=== PATIENT | male | born 1945 | race Caucasian/White ===

== ENCOUNTER 2022-08-16 13:02 | Emergency (ER) | payer MEDICARE, SELFPAY ==
[2022-08-16 14:16] VITALS: BP 106/62; PULSE 97; RESP 20; TEMP 36.5; O2SAT 99
--- NOTE | 2022-08-16 16:02 | ED.MALEGU ---
HPI - Male Genitourinary General Chief complaint: Urogenital-Male Stated complaint: Urinary Problem Time Seen by Provider: 08/16/22 15:55 Source: patient, family, RN notes reviewed and old records reviewed Mode of arrival: wheelchair Limitations: no limitations History of Present Illness HPI Narrative: 77-year-old male accompanied by [facility] to [facility] with complaint urinary burning, fever and chills since last night, increased darkness of urine with frequency and urgency and some incontinency. states they called For primary care and were told to come to urgent care to have urine done, we did not think we would have to wait for so long. Patient has history of past urinary infections.Patient is very unsteady on his feet and states he needs to have hip replacement done, nurses had to assist him to use restroom. MD Complaint: dysuria Onset (ago): day(s) (day 2 of symptoms) Associated symptoms: Reports incontinence Related Data Home Medications Medication Instructions Recorded Confirmed amlodipine 2.5 mg tablet 5 mg PO DAILY 08/16/22 08/16/22 aspirin 81 mg capsule 81 mg PO DAILY 08/16/22 08/16/22 atorvastatin 40 mg tablet 40 mg PO DAILY 08/16/22 08/16/22 cholecalciferol (vitamin D3) 10 10 mcg PO DAILY 08/16/22 08/16/22 mcg (400 unit) chewable tablet (Kids Vitamin D3) esomeprazole magnesium 20 mg 20 mg PO DAILY 08/16/22 08/16/22 capsule,delayed release (Nexium) labetalol 300 mg tablet 300 mg PO BID 08/16/22 08/16/22 olmesartan 40 mg tablet 40 mg PO DAILY 08/16/22 08/16/22 pediatric [id number] 1 tablet PO DAILY 08/16/22 08/16/22 wheat dextrin 3 gram/3.5 gram oral 1 packet PO DAILY 08/16/22 08/16/22 powder (Best Fiber) Allergies Allergy/AdvReac Type Severity Reaction Status Date / Time lisinopril AdvReac Cough Verified 08/16/22 14:38 Review of Systems Review of Systems: CONSTITUTIONAL: Reports fever, chills, or sweats. CARDIOVASCULAR: Denies chest pain, palpitations, or edema. RESPIRATORY: Denies cough or dyspnea. GASTROINTESTINAL: Denies abdominal pain, nausea, vomiting, or diarrhea. GENITOURINARY: Reports dysuria, frequency, urgency, incontinency. Denies flank pain or hematuria. SKIN: Denies rash or itching. MUSCULOSKELETAL: Denies back pain or myalgia. Denies CVA tenderness NEUROLOGIC: Denies headache All systems reviewed & are unremarkable except as noted in HPI and below PMFSH Past Medical History Medical History (Updated 08/23/22 @ 08:12 by Rosa Langford NP) Anxiety and depression Arthritis right hip Enlarged prostate Hypertension Prostate CA UTI (urinary tract infection) Social History Social History (Updated 08/23/22 @ 08:16 by Rosa Langford NP) Smoking status: Never smoker Alcohol intake: unknown Substance use type: does not use Living arrangements: with family Occupation/Education: retired Gender identity (if verbalized by the patient): Male Comments At time of signature, agree with nursing past medical, surgical, social and family history. There is no relevant family history pertinent to the presenting complaint Exam Narrative: GENERAL:Chronic ill-appearing, well-nourished, and in no acute distress. HEAD: Normocephalic, atraumatic. NECK: Supple. no lymphadenopathy CHEST: Clear to auscultation. No respiratory distress.SAO2 99% on room air HEART: Regular rate and rhythm. No murmur heard. Normal peripheral pulses. ABDOMEN: Soft, nontender, nondistended, normal active bowel sounds. No CVA tenderness EXTREMITIES: Normal range of motion. No edema.Reported difficulty with ambulation related to right hip SKIN: Warm, dry, no rash. NEURO: No focal deficits. Alert and oriented x3. Course Course Emergency Course: Patient is aware of diagnosis, understands and agrees to treatment plan.? Anticipatory guidance given.? Patient agrees to follow-up as directed and is aware of reasons to seek care at the emergency department. Portions of this justin
== END 2022-08-16 16:10 | disposition home or self-care (01) ==
PROVIDERS: Emergency Provider Registered Nurse; PCP Internal Medicine
DX: N39.0 Urinary tract infection, site not specified (principal); M16.11 Unilateral primary osteoarthritis, right hip; N40.0 Benign prostatic hyperplasia without lower urinary tract symptoms; I10 Essential (primary) hypertension; Z85.46 Personal history of malignant neoplasm of prostate; Z79.82 Long term (current) use of aspirin
CPT/HCPCS: 81003; 87077; 87086; 87186; 99213; G0463

== ENCOUNTER 2024-12-29 11:40 | Outpatient (CLI) | payer MEDICARE, SELFPAY ==
--- NOTE | ~2024-12-29 | PE_ITS ---
EXAMINATION: PET skull to mid thigh DATE: 12/29/2024 13:45 INDICATION: Abnormal findings on diagnostic images. TECHNIQUE: Blood glucose level was 99 mg/dL. 10.949 mCi of 18-fluorodeoxyglucose (18-FDG) was adminis tered i.v. Low dose computed tomography (CT) images were acquired from the base of the brain to the p roximal thighs for attenuation correction and anatomic localization. Automated exposure control was e mployed. Dose-length product (DLP) was 1174 mGy-cm. Positron emission tomography (PET) images were ac quired in the same distribution. COMPARISON: None FINDINGS: Head/neck: There are no pathologically enlarged lymph nodes. Chest: There is a pneumatocele in right upper lobe. There is mild atelectasis bilaterally. There are small pleural effusions. The heart size is normal. There are coronary artery calcifications. There is a small pericardial effusion. There is a moderate-sized sliding hiatal hernia. There is bilateral gy necomastia. There is a healing fracture of left first rib with callus formation. There is a healing f racture of the sternum with callus formation. Abdomen/pelvis/proximal thighs: The liver and spleen are normal. The gallbladder is normal in size. T he pancreas and adrenal glands are normal. There are cysts in right kidney measuring up to 3.7 cm. Th ere are 2 stones in right kidney measuring up to 6 mm. There is an 11 mm cyst in left kidney. There i s a 4.0 cm mass of left kidney lower pole with maximum SUV of 3.5. There is an 8 mm cyst in left kidn ey. There is a 9 mm stone in left kidney. The prostate is severely enlarged. There is diverticulosis of the colon without evidence of diverticulitis. There are no dilated loops of bowel. The appendix is normal. There are no pathologically enlarged lymph nodes. There is no free intraperitoneal fluid. 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 IMPRESSION: 1. 4.0 cm left kidney mass with increased activity suspicious for renal cell carcinoma. Abdomen CT or MRI without and with contrast is recommended. 2. Small pleural effusions. Reviewed, dictated and finalized at location B. IMPRESSION: 1. 4.0 cm left kidney mass with increased activity suspicious for renal cell ca rcinoma. Abdomen CT or MRI without and with contrast is recommended. 2. Small pleural effusions.
[2024-12-29 12:20] LABS: Glucose Point of Care 99 mg/dl (65-105)
--- OUTSIDE RECORDS SUMMARY | 2024-12-29 13:34 | XMS_ITS | Encounter Summary ---
Author Organization [facility] Address [address] [place] [address] Care Team Providers Care Blanking Press Operator Name Role Phone Adithya Otero MD Primary Care Provider [phone] Encounter Details Date Type Department Care Team (Late st Contact Info) Description 09/04/[address] 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 HISTORY: HISTORY: 272.4-HYPERLIPIDEMIA The patient is tolerating the medications. 401.9-HYPERTENSION, UNSPECIFIED The patient denies chest pain, shortness of breath, dyspnea on exertion, pedal edema, or headache. 472.0-RHINITIS, CHRONIC on med, stable 600.00-BPH W/O OBSTRUCTION stable ROS: ENDOCRINE: No heat or cold intolerance, no excessive thirst. CARDIAC: No chest pain, palpitations, orthopnea, dyspnea on exertion, or paroxysmal nocturnal dyspnea. RESPIRATORY: No dyspnea, cough, hemoptysis or wheezing. : No dysuria or hematuria. GI: No abdominal pain, nausea, vomiting, diarrhea, constipation, melena, or hematochezia. PAST MEDICAL HISTORY: reviewed SOCIAL HISTORY: TOBACCO USE: Has no significant smoking history. ALCOHOL: Does not give any significant history of alcohol usage. EXERCISES: The patient exercises. PHYSICAL EXAMINATION: CONSTITUTIONAL: GENERAL APPEARANCE: Healthy appearing patient in no distress. EARS, NOSE, MOUTH AND THROAT: EARS: EFFUSION PRESENT BILATERALLY, TYMPANIC MEMBRANES INFLAMED BILATERALLY. ORAL: Inspection of gums, lips, palate, and teeth normal. No scars, lesions, or masses. Oral mucosaunremarkable with non-inflamed posterior pharynx. NECK/THYROID: Trachea midline. No thyroid enlargement, tenderness, or mass. No supraclavicular or cervical adenopathy. RESPIRATORY: Clear to auscultation and percussion. Normal respiratory effort. CARDIOVASCULAR: CARDIAC: Regular rhythm. No murmurs, rubs, or gallops. ARTERIAL: Aortic pulses of normal amplitude with no bruits. EDEMA/VARICOSITIES OF EXTREMITIES: No edema or varicosities. GASTROINTESTINAL: ABDOMEN: Soft, non-tender, without masses. Bowel sounds active. LIVER/SPLEEN/KIDNEY: No hepatosplenomegaly, tenderness or nodularity. Kidneys not palpable. 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 600.00-BPH W/O OBSTRUCTION check psa, exam at fu 780.57-SLEEP APNEA discussed, cont machine RETURN VISIT : Patient instructed to return in 3 months. Electronically Signed by: Adithya Otero MD on Monday, September 04, 2006 Addendum - 09/04/2006 01:12 pm left knee pain old war injuries, djd in past, check uric acid Electronically Signed by: Adithya Otero MD on Monday, September 04, 2006 documented in this encounter Plan of Treatment Upcoming Encounters Date Type Department Care Team (Late st Contact Info) Description 02/09/2025 1:40 PM CDT Office Visit [facility] Primary Care [facility] [address] [place] [address] [address] [place] [address] Adithya Otero MD [address] [facility] [address] [place] [address] documented as of this encounter Visit Diagnoses Not on filedocumented in this encounter Care Teams Blanking Press Operator Relationship Specialty Start Date End Date Adithya Otero MD PCP - General 04/28/08 documented as of this encounter
--- OUTSIDE RECORDS SUMMARY | 2024-12-29 13:34 | XMS_ITS | Encounter Summary ---
Author Organization [facility] Address 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 Gender Identity Not on file Sexual Orientation Not on file documented as of this encounter Last Filed Vital Signs Vital Sign Reading Time Taken Comments Blood Pressure 126/84 12/11/2006 1:00 PM MALARIOLOGIST Pulse - - Temperature - - Respiratory Rate - - Oxygen Saturation - - Inhaled Oxygen Concentration - - Weight 104.3 kg (230 lb) 12/11/2006 1:00 PM MALARIOLOGIST Height - - Body Mass Index 30.76 11/10/2003 1:00 PM MALARIOLOGIST documented in this encounter Plan of Treatment Upcoming Encounters Date Type Department Care Team (Late st Contact Info) Description 02/09/2025 1:40 PM CDT Office Visit [facility] Primary Care [address] [place] [address] Adithya Otero MD [address] [place] [phone] documented as of this encounter Visit Diagnoses Not on filedocumented in this encounter Care Teams Animal Therapist Relationship Specialty Start Date End Date Adithya Otero MD PCP - General 04/28/08 documented as of this encounter
--- OUTSIDE RECORDS SUMMARY | 2024-12-29 13:34 | XMS_ITS | Referral Summary ---
Author Organization [facility] Address [address] [place] [address] Care Team Providers Care Apparatus Operator Name Role Phone Adithya Otero MD Primary Care Provider + Adithya Otero MD Unavailable [phone] Andlydia Bronson MD, Marquise Black Unavailable Encounters Date Type Department Care Team Description 12/20/2024 Community Orders [facility] EpicCare Link Belén Avila MD 11/26/2024 11:34 AM PIPE LAYER - 11/26/2024 11:59 PM PIPE LAYER Hospital Encounter [facility] - Imaging [address] [place] [address] Prostate cancer (HCC) Discharge Disposition: Discharge to home or self care from Last 3 Months Allergies Active Allergy Reactions Criticality Noted Date Comments [place] Anaphylaxis High 12/08/2019 Lisinopril Anaphylaxis High Medications atorvastatin (LIPITOR) 40 mg tabletIndicatio ns:hyperlipidem ia Take 40 mg by mouth nightly Active amLODIPine (NORVASC) 2.5 mg tabletIndicatio ns:hypertension Take 5 mg by mouth every morning 7 Active labetalol (NORMODYNE,NAVARRO DATE) 300 mg tabletIndicatio ns:hypertension Take 300 mg by mouth 2 (two) times a day Active esomeprazole (NexIUM) 40 mg capsuleIndicati ons:Gerd Take 20 mg by mouth daily with lunch 4 Active aspirin 81 mg tabletIndicatio ns:prevention of thrombosis Take 81 mg by mouth every other day Active olmesartan (BENICAR) 40 mg tabletIndicatio ns:hypertension Take 40 mg by mouth nightly 9 Active EPINEPHrine 0.3 mg/0.3 mL auto-injection syringe Inject 0.3 mg into the muscle as instructed daily as needed for anaphylaxis 9 Active acetaminophen (TYLENOL) 500 mg tablet Take 1,000 mg by mouth every 6 (six) hours as needed for pain Active Active Problems Problem Noted Date Diagnosed Date History of colon polyps 04/30/2021 Overview (04/30/2021): Added automatically from request for surgery [id number] Screen for colon cancer 04/30/2021 Overview (04/30/2021): Added automatically from request for surgery [id number] Neurosensory deafness, 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 05/04/2017 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 05/04/2017 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 05/04/2017 History of squamous cell carcinoma of skin 08/07 Malignant neoplasm of prostate 07/11/2015 Hypertrophic scar 04/03/2015 Squamous cell carcinoma of skin of face 11/22/19 15 Social History Tobacco Use Types Packs/Day Years Used Date Smoking Tobacco: Never Smokeless Tobacco: Never Alcohol Use Standard Drinks/Week Comments Not Currently 0 (1 standard drink = 0.6 oz pur e alcohol) Sex and Gender Information Value Date Recorded Sex Assigned at Not on file Legal Sex Male 1:07 AM PIPE LAYER Gender Identity Not on file Sexual Orientation Not on file Last Filed Vital Signs Vital Sign Reading Time Taken Comments Blood Pressure 127/80 09/26/2021 8:52 AM PIPE LAYER Pulse 87 09/26/2021 8:52 AM PIPE LAYER Temperature 36.7 C (98 F) 06/11/2021 12:13 PM CDT Respiratory Rate 20 06/11/2021 12:13 PM CDT Oxygen Saturation 98% 06/11/2021 12:13 PM CDT Inhaled Oxygen Concentration - - Weight 99.8 kg (220 lb) 09/26/2021 8:52 AM PIPE LAYER Height 182.9 cm (6') 09/26/2021 8:52 AM PIPE LAYER Body Mass Index 29.84 09/26/2021 8:52 AM PIPE LAYER Plan of Treatment Not on file Procedures Procedure Name Priority Date/Time Associated Diagnosis Comments MRI PELVIS PROSTATE W WO CONTRAST Schedule Routine, Read Routine (OP Routine) 11/26/2024 1:41 PM PIPE LAYER Prostate cancer (HCC) COLONOSCOPY 06/11/2021 9:48 AM CDT from Last 3 Months or Most Recently Relevant to Health Maintenance Results * MRI PELVIS PROSTATE W WO CONTRAST (11/26/2024 1:41 PM PIPE LAYER) Anatomical Region Laterality Modality Body N/A Magnetic Resonan ce 11/28/2024 11:1 9 AM PIPE LAYER Impressions 11/28/2024 11:21 AM PIPE LAYER Benign prostatic hypertrophy. No evidence of PI RADS 3 or greater lesions. Dictated by: Sondra Kaur M.D. The radiology attending physician has personally reviewed this study, and had reviewed and/or edited this written report and agrees with it. Electronically signed by: Miriam Littlejohn M.D. Narrative 11/28/2024 11:21 AM PIPE LAYER EXAMINATION: MAGNETIC RESONANCE IMAGING OF THE PELVIS WITHOUT AND WITH CONTRAST HISTORY: History of Patricia grade 3+3 = 6 adenocarcinoma of the prostate initially diagnosed on biopsy from 10/26/2014 in the right lateral apex. Patient is currently on active surveillance with most recent PSA of 4.33 on 12/17/2022. Most recent biopsy from 03/26/2020 with benign pathology. TECHNIQUE: MR imaging of the prostate gland was performed with a torso phased array coil prior to and following administration of intravenous gadolinium. Protocol: Prostate 3T Contrast: Gadoterate Meglumine 20 mL COMPARISON: MRI pelvis, 12/21/2021 FINDINGS: Prostate volume: 77 cc The prostate transition zone is enlarged with benign prostatic hyperplasia. There is resultant thinning of the peripheral zone with scattered patchy T2 hypointense areas without corresponding signal changes on other sequences, possibly representing post biopsy changes versus chronic prostatitis. The prostate was assessed using the PI-RADS version 2.1 scoring system. No PI-RADS 3 or greater lesions. Staging Information: No enlarged lymph nodes are identified. No suspicious osseous lesions are identified. Severe left hip degenerative changes with a small joint effusion, increased in comparison to prior MRI. Mild to moderate right degenerative changes of the hips. Other findings: Mild bladder wall thickening or trabeculation and diverticula consistent with chronic bladder outlet obstruction. Small volume of free pelvic fluid. Colonic diverticulosis. Small right-sided hydrocele. Vessels of the pelvis are patent. Procedure Note Miriam Littlejohn MD - 11/28/2024 EXAMINATION: MAGNETIC RESONANCE IMAGING OF THE PELVIS WITHOUT AND WITH CONTRAST HISTORY: History of Onley grade 3+3 = 6 adenocarcinoma of the prostate initially diagnosed on biopsy from 10/26/2014 in the right lateral apex. Patient is currently on active surveillance with most recent PSA of 4.33 on 12/17/2022. Most recent biopsy from 03/26/2020 with benign pathology. TECHNIQUE: MR imaging of the prostate gland was performed with a torso phased array coil prior to and following administration of intravenous gadolinium. Protocol: Prostate 3T Contrast: Gadoterate Meglumine 20 mL COMPARISON: MRI pelvis, 12/21/2021 FINDINGS: Prostate volume: 77 cc The prostate transition zone is enlarged with benign prostatic hyperplasia. There is resultant thinning of the peripheral zone with scattered patchy T2 hypointense areas without corresponding signal changes on other sequences, possibly representing post biopsy changes versus chronic prostatitis. The prostate was assessed using the PI-RADS version 2.1 scoring system. No PI-RADS 3 or greater lesions. Staging Information: No enlarged lymph nodes are identified. No suspicious osseous lesions are identified. Severe left hip degenerative changes with a small joint effusion, increased in comparison to prior MRI. Mild to moderate right degenerative changes of the hips. Other findings: Mild bladder wall thickening or trabeculation and diverticula consistent with chronic bladder outlet obstruction. Small volume of free pelvic fluid. Colonic diverticulosis. Small right-sided hydrocele. Vessels of the pelvis are patent. IMPRESSION: Benign prostatic hypertrophy. No evidence of PI RADS 3 or greater lesions. Dictated by: Sondra Kaur M.D. The radiology attending physician has personally reviewed this study, and had reviewed and/or edited this written report and agrees with it. Electronically signed by: Miriam Littlejohn M.D. [facility] MRI PROCEDURES Final Resul t * COLONOSCOPY (06/11/2021 9:48 AM CDT) Anatomical Region Laterality Modality Other Narrative Procedure Note Roxanna Conteh MD - 06/11/2021 9:48 AM CDT [facility] Patient Name: Roxanna Lomeli Procedure Date: 06/11/2021 9:48 AM Date of : 1945 Admit Type: Outpatient Age: 75 Gender: Male Attending MD: Roxanna Conteh M.D. Room: [facility] ENDOSCOPY ROOM 2 Note Status: Finalized Patient Profile: Refer to note in patient chart for documentation of history and physical. Procedure: Colonoscopy Indications: High risk colon cancer surveillance: Personalhistory of colonic polyps, Last colonoscopy: October 2015 Referring MD: Adithya Otero M.D. Providers: Roxanna Conteh M.D. Impression: - Hemorrhoids found on perianal exam. - Diverticulosis in the sigmoid colon, in the transverse colon and at the hepatic flexure. - The examination was otherwise normal. - No specimens collected. Recommendation: - Discharge patient to home. - Resume previous diet. - Perform a barium enema at appointment to be scheduled. - Repeat colonoscopy in 5 years for surveillance. Medicines: Propofol per Anesthesia Complications: No immediate complications. Estimated Blood Loss: Estimated blood loss: none. Procedure: Pre-Anesthesia Assessment: - This assessment was completed [Time ofAssessment] prior to the administration of sedation. The benefits, risks and alternatives of theprocedure and sedation were discussed and informed consentwas obtained. All questions were answered. Please referto the signed informed consent document in the medical record. The bowel preparation used was Miralax and bisacodyl tablets via single dose instruction. The scope was passed under direct vision. TheColonoscope [id number] was introduced through the anus and advanced to the the hepatic flexure. The colonoscopy was extremely difficult due toinadequate bowel prep and a redundant colon. the colonmproximal to the hepatic flexure was not exam,ined. Findings: Hemorrhoids were found on perianal exam. Multiple small-mouthed diverticula were found in the sigmoid colon, transverse colon and hepatic flexure. The exam was otherwise without abnormality. Electronically signed by Roxanna Conteh M.D. Roxanna Conteh M.D. 06/11/2021 11:45:31 AM Number of Addenda: 0 Note Initiated On: 06/11/2021 9:48 AM Procedure Code(s): --- Professional --- G0105, 53, Colorectal cancer screening; colonoscopy on individual at high risk Diagnosis Code(s): --- Professional --- K57.30, Diverticulosis of large intestine without perforation orabscess without bleeding K64.9, Unspecified hemorrhoids Z86.010, Personal history of colonic polyps CPT copyright 2019 [employer] [place] [employer]. All rights reserved. The codes documented in this report are preliminary and upon bookbinder chief reviewmay be revised to meet current compliance requirements. Recognized by the [place] [employer] for promoting quality in endoscopy Roxanna Conteh MD ENDOSCOPY PROCEDURES Final Re sult from Last 3 Months or Most Recently Relevant to Health Maintenance Insurance [facility] MEDICARE [facility] [place] [place] MEDICARE [facility] MEDICARE BLUE CROSS MEDICARE SUPPLEMENT Member Subscriber Plan / Payer (Ef fective 2021-Present) Name:Roxanna Lomeli Relation to Subscriber:Self Name:Roxanna Lomeli Payer ID:[id number] Group ID:[id number] Type:COMMERCIAL Address: [address] [place] [id number] Advance Directives For more information, please contact: [phone] * Full Code (Latest Code Status on File) Date Activated Date Inactivated Comments 06/11/2021 10:18 AM 06/11/2021 4:38 PM * Full Code Date Activated Date Inactivated Comments 06/11/2021 10:18 AM 06/11/2021 10:18 AM Care Teams Apparatus Operator Relationship Specialty Start Date End Date Adithya Otero MD PCP - General Internal Medicine 04/06/17 Adithya Otero MD Internal Medicine 04/06/17 Marquise Mackay Jr., MD Consulting Physician Urology 03/26/20
--- OUTSIDE RECORDS SUMMARY | 2024-12-29 13:34 | XMS_ITS | Encounter Summary ---
Author Organization [facility] Address [address] [place] [address] Care Team Providers Care Salesperson Hearing Aids Name Role Phone Adithya Otero MD Primary Care Provider [phone] Encounter Details Date Type Department Care Team (Late Contact Info) Description 02/09/2004 Outpatient Historical [facility] Internal Medicine [address] [address] Adithya Otero MD [address] [place] [address] [address] [place] [address] Social History Tobacco Use Types Packs/Day Years Used Date Smoking Tobacco: Never Assessed Sex and Gender Information Value Date Recorded Sex Assigned at Not on file 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 Gender Identity Not on file Sexual Orientation Not on file documented as of this encounter Plan of Treatment Upcoming Encounters Date Type Department Care Team (Late st Contact Info) Description 02/09/2025 1:40 PM CDT Office Visit [facility] Primary Care [address] [place] [address] Adithya Otero MD [address] [place] [address] [address] [place] [address] documented as of this encounter Visit Diagnoses Not on filedocumented in this encounter Care Teams Salesperson Hearing Aids Relationship Specialty Start Date End Date Adithya Otero MD PCP - General 04/28/08 documented as of this encounter
--- OUTSIDE RECORDS SUMMARY | 2024-12-29 13:34 | XMS_ITS | Encounter Summary ---
Author Organization [facility] Address 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 Gender Identity Not on file Sexual Orientation Not on file documented as of this encounter Plan of Treatment Upcoming Encounters Date Type Department Care Team (Late st Contact Info) Description 02/09/2025 1:40 PM CDT Office Visit [facility] Primary Care [address] [place] [address] Adithya Otero MD [address] [place] [address] [address] [place] [address] documented as of this encounter Visit Diagnoses Not on filedocumented in this encounter Care Teams Nurses Educator Relationship Specialty Start Date End Date Adithya Otero MD PCP - General 04/28/08 documented as of this encounter
--- OUTSIDE RECORDS SUMMARY | 2024-12-29 13:34 | XMS_ITS | Encounter Summary ---
Author Organization [employer] Address [address] [place] [address] Care Team Providers Care Podiatric Aide Name Role Phone Adithya Otero MD Primary Care Provider [phone] Encounter Details Date Type Department Care Team (Late st Contact Info) Description 12/27/2024 External Device Data [facility] ABSTRACTION Provider, Abstract NO ADDRESS ON FILE Social History Tobacco Use Types Packs/Day Years Used Date Smoking Tobacco: Never Smokeless Tobacco: Never Alcohol Use Standard Drinks/Week Comments No 0 (1 standard drink = 0.6 oz pur e alcohol) Feeling Safe Answer Date Recorded Within the last year, have y ou been afraid of your partner or ex-partner? Patient declined 01/28/2019 Within the last year, have y ou been humiliated or emotionally abused in other ways by your partner or ex-partner? Patient declined 01/28/2019 Within the last year, have y ou been kicked, hit, slapped, or otherwise physically hurt by your partner or ex-partner? Patient declined 01/28/2019 Within the last year, have y ou been raped or forced to have any kind of sexual activity by your partner or ex-partner? Patient declined 01/28/2019 Social Connections Answer Date Recorded In a typical week, how many times do you talk on the phone with family, friends, or neighbors? Patient declined 01/28/2019 How often do you get togethe r with friends or relatives? Patient declined 01/28/2019 How often do you attend jewish or lutheran serv ices? Patient declined 01/28/2019 Do you belong to any clubs o r organizations such as jewish groups, unions, fraternal or athletic groups, or school groups? Patient declined 01/28/2019 How often do you attend meet ings of the clubs or organizations you belong to? Patient declined 01/28/2019 Are you , , di vorced, , never , or living with a partner? 01/28/2019 Financial Resource Strain Answer Date R ecorded How hard is it for you to pa y for the very basics like food, housing, medical care, and heating? Not hard at all 05/02/2022 Food Insecurity Answer Date Recorded In the past 12 months, have you worried that your food would run out before you had money to buy more? Never true 05/02/2022 In the past 12 months, did y ou run out of food and didn't have money to buy more? Never true 05/02/2022 Transportation Needs Answer Date Record ed In the past 12 months, has l ack of transportation kept you from medical appointments or from getting medications? No 05/02/2022 Lack of Transportation (Non-Medical) Not on file 05/02/2022 Feeling Safe Answer Date Recorded Are you in a relationship wi th someone who hurts you emotionally and/or physically? 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 [place] [address] [place] [address] documented as of this encounter Visit Diagnoses Not on filedocumented in this encounter Additional Health Concerns Assessment Noted Time PHQ-9 Depression Total Score: 1 11/28/19 25 10:12 PM SERVICE SPRINKLER HELPER documented as of this encounter Care Teams Podiatric Aide Relationship Specialty Start Date End Date Adithya Otero MD PCP - General 04/28/08 documented as of this encounter
--- OUTSIDE RECORDS SUMMARY | 2024-12-29 13:34 | XMS_ITS | Encounter Summary ---
Author Organization [facility] Address 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 Gender Identity Not on file Sexual Orientation Not on file documented as of this encounter Last Filed Vital Signs Vital Sign Reading Time Taken Comments Blood Pressure 120/88 05/10/2004 1:30 PM CDT Pulse - - Temperature - - Respiratory Rate - - Oxygen Saturation - - Inhaled Oxygen Concentration - - Weight 103.4 kg (228 lb) 05/10/2004 1:30 PM CDT Height - - Body Mass Index 30.5 11/10/2003 1:00 PM POTATO CHIP COOKER MACHINE documented in this encounter Plan of Treatment Upcoming Encounters Date Type Department Care Team (Late st Contact Info) Description 02/09/2025 1:40 PM CDT Office Visit [facility] Primary Care [address] [place] [address] Adithya Otero MD [address] [place] [phone] documented as of this encounter Visit Diagnoses Not on filedocumented in this encounter Care Teams Disbursement Clerk Relationship Specialty Start Date End Date Adithya Otero MD PCP - General 04/28/08 documented as of this encounter
--- OUTSIDE RECORDS SUMMARY | 2024-12-29 13:34 | XMS_ITS | Encounter Summary ---
Author Organization [facility] Address 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 Gender Identity Not on file Sexual Orientation Not on file documented as of this encounter Plan of Treatment Upcoming Encounters Date Type Department Care Team (Late st Contact Info) Description 02/09/2025 1:40 PM CDT Office Visit [facility] Primary Care [address] [place] [address] Adithya Otero MD [address] [place] [address] [address] [place] [address] documented as of this encounter Visit Diagnoses Not on filedocumented in this encounter Care Teams Metal Hanger Relationship Specialty Start Date End Date Adithya Otero MD PCP - General 04/28/08 documented as of this encounter
--- OUTSIDE RECORDS SUMMARY | 2024-12-29 13:34 | XMS_ITS | Encounter Summary ---
Author Organization [facility] Address 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 CHIEF COMPLAINT Patient here for follow up hyperlipidemia, hypertension. HISTORY: HISTORY: 272.4-HYPERLIPIDEMIA The patient is tolerating the medications. 368.30-VISUAL DISTURBANCES unchanged--has been stable 401.9-HYPERTENSION, UNSPECIFIED The patient denies chest pain, shortness of breath, dyspnea on exertion, pedal edema, or headache.running a little high at home Prezi in med 472.0-RHINITIS, CHRONIC stable on med, ears blocked 530.81-GASTROESOPHAGEAL REFLUX (GERD) The patient's dyspeptic symptoms remain stable. 600.00-BPH W/O OBSTRUCTION minimal sx 780.57-SLEEP APNEA not on rx ROS: ENDOCRINE: No heat or cold intolerance, [...] distress. EARS, NOSE, MOUTH AND THROAT: EARS: CERUMEN INCREASED IN THE EARS BILATERALLY. NECK/THYROID: Trachea midline. No thyroid enlargement, tenderness, or mass. No supraclavicular or cervical adenopathy. RESPIRATORY: Clear to auscultation and percussion. Normal respiratory effort. CARDIOVASCULAR: CARDIAC: Regular rhythm. No murmurs, rubs, or gallops. ARTERIAL: No aortic bruits. EDEMA/VARICOSITIES OF EXTREMITIES: No edema or varicosities. GASTROINTESTINAL: ABDOMEN: Soft, non-tender, without masses. Bowel sounds active. LIVER/SPLEEN/KIDNEY: No hepatosplenomegaly, tenderness or nodularity. Kidneys not palpable. SKIN: SKIN: Warm, dry, no diaphoresis, no significant lesions, irritation, rashes or ulcers. No induration, obvious subcutaneous nodules or tightening. OFFICE PROCEDURES: PROCEDURE: Ear lavage performed on patient. The cerumen impaction was successfully removed by ear wash irrigation so as to visualize TM. ASSESSMENT/PLAN: 272.4-HYPERLIPIDEMIA discussed. change med reassess MEDICATIONS: SIMVASTATIN ORAL TABLET 40 MG, 1 Every Day, 90 Dispensed, 1 Fills, status: NEW PRESCRIPTION, 12/24/2007. 368.30-VISUAL DISTURBANCES unchanged 380.4-CERUMEN IMPACTION rx LAB ORDERS: Order number: [id number] Test Ordered: REMOVE CERUMEN IMPACT 42813 401.9-HYPERTENSION, UNSPECIFIED LAB ORDERS: 4mo Order number: [id number] Test Ordered: COMPREHENSIVE METABOLIC PANEL & GFR 1112 Order number: [id number] Test Ordered: LIPID PANEL 1078 472.0-RHINITIS, CHRONIC cont med 600.00-BPH W/O OBSTRUCTION stable 780.57-SLEEP APNEA unchanged PREVENTIVE COUNSELING The patient was counseled regarding diet, regular sustained exercise for at least 30 minutes 3-4 times per week. Patient Education: Risks, benefits, and possible side effects of medication(s) were reviewed with the patient. Questions were allowed to stated satisfaction. RETURN VISIT : Patient instructed to return in 4 months. Electronically Signed by: Adithya Otero MD on Monday, December 24, 2007 documented in this encounter Plan of Treatment Upcoming Encounters Date Type Department Care Team (Late st Contact Info) Description 02/09/2025 1:40 PM CDT Office Visit [facility] Primary Care [address] [phone] Adithya Otero MD [address] [place] [address] documented as of this encounter Visit Diagnoses Not on filedocumented in this encounter Care Teams Court Transcriber Relationship Specialty Start Date End Date Adithya Otero MD PCP - General 04/28/08 documented as of this encounter
--- OUTSIDE RECORDS SUMMARY | 2024-12-29 13:34 | XMS_ITS | Encounter Summary ---
Author Organization [facility] Address 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 Gender Identity Not on file Sexual Orientation Not on file documented as of this encounter Last Filed Vital Signs Vital Sign Reading Time Taken Comments Blood Pressure 142/80 06/05/2006 2:45 PM CDT Pulse - - Temperature - - Respiratory Rate - - Oxygen Saturation - - Inhaled Oxygen Concentration - - Weight 101.2 kg (223 lb) 06/05/2006 2:45 PM CDT Height - - Body Mass Index 29.83 11/10/2003 1:00 PM LUNCHROOM ATTENDANT documented in this encounter Plan of Treatment Upcoming Encounters Date Type Department Care Team (Late st Contact Info) Description 02/09/2025 1:40 PM CDT Office Visit [facility] Primary Care [address] [place] [address] Adithya Otero MD [address] [place] [phone] documented as of this encounter Visit Diagnoses Not on filedocumented in this encounter Care Teams Pearl Maker Relationship Specialty Start Date End Date Adithya Otero MD PCP - General 04/28/08 documented as of this encounter
--- OUTSIDE RECORDS SUMMARY | 2024-12-29 13:34 | XMS_ITS | Encounter Summary ---
Author Organization [facility] Address 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 HISTORY: HISTORY: 272.4-HYPERLIPIDEMIA The patient is tolerating the medications. The patient`s most recent labs reviewed.med tolerating 401.9-HYPERTENSION, UNSPECIFIED The patient denies chest pain, shortness of breath, dyspnea on exertion, pedal edema, or headache. The patient is tolerating the medication. 472.0-RHINITIS, CHRONIC occ sx 530.81-GASTROESOPHAGEAL REFLUX (GERD) richard med 780.57-SLEEP APNEA difficulty with CPAP ROS: ENDOCRINE: No heat or cold intolerance, [...] distress. EARS, NOSE, MOUTH AND THROAT: EARS: Tympanic membranes shiny without retraction. Canals unremarkable. Hearing grossly normal. ORAL: Inspection of gums, lips, palate, and [...] tenderness or nodularity. Kidneys not palpable. SKIN: bruise left arm--from lab draw SKIN: Warm, dry, no diaphoresis, no significant lesions, irritation, rashes or ulcers. No induration, obvious subcutaneous nodules or tightening. ASSESSMENT/PLAN: 272.4-HYPERLIPIDEMIA cont med MEDICATIONS: VYTORIN ORAL TABLET 10-40 MG, 1 Every Day, 90 Dispensed, 3 Fills, 90 Duration/Days Supply, status: CONTINUED, 06/05/2006. 401.9-HYPERTENSION, UNSPECIFIED running high, cont med, pt to return for bp check may need inc med MEDICATIONS: LISINOPRIL ORAL TABLET 20 MG, 1 Two Times A Day, 180 Dispensed, 4 Fills, 90 Duration/Days Supply, status: CONTINUED, 06/05/2006. LABETALOL HCL ORAL TABLET 100 MG, 1 Two Times A Day, 180 Dispensed, 3 Fills, 90 Duration/Days Supply, status: CONTINUED, 06/05/2006. 472.0-RHINITIS, CHRONIC cont med 530.81-GASTROESOPHAGEAL REFLUX (GERD) cont med, discussed 780.57-SLEEP APNEA discusse, pt to look into alternate device, will fu RETURN VISIT : Patient instructed to return in 3 months. Electronically Signed by: Adithya Otero MD on Monday, June 05, 2006 documented in this encounter Plan of Treatment Upcoming Encounters Date Type Department Care Team (Late st Contact Info) Description 02/09/2025 1:40 PM CDT Office Visit [facility] Care [address] [phone] Adithya Otero MD [address] [place], [place] [phone] documented as of this encounter Visit Diagnoses Not on filedocumented in this encounter Care Teams Soil And Plant Scientist Relationship Specialty Start Date End Date Adithya Otero MD PCP - General 04/28/08 documented as of this encounter
--- OUTSIDE RECORDS SUMMARY | 2024-12-29 13:34 | XMS_ITS | Encounter Summary ---
Author Organization [facility] Address [address] [place] [address] Care Team Providers Care Enterprise Software Developer Name Role Phone Adithya Otero MD Primary Care Provider [phone] Encounter Details Date Type Department Care Team (Late st Contact Info) Description 05/09/[address] 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 Primary Care [address] [place] [address] Adithya Otero MD [address] [place] [phone] documented as of this encounter Visit Diagnoses Not on filedocumented in this encounter Care Teams Enterprise Software Developer Relationship Specialty Start Date End Date Adithya Otero MD PCP - General 04/28/08 documented as of this encounter
--- OUTSIDE RECORDS SUMMARY | 2024-12-29 13:34 | XMS_ITS | Encounter Summary ---
Author Organization [employer] Address [address] [place] [address] Care Team Providers Care Cloth Shrinking Machine Operator Name Role Phone Adithya Otero MD Primary Care Provider [phone] Encounter Details Date Type Department Care Team [...] declined 01/28/2019 How often do you attend roman catholic or hinduism serv ices? 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 Gender Identity Not on file Sexual Orientation Not on file Occupation Industry Job Start Date Job End Date retired Not on file Not on file Not on file documented as of this encounter Plan of Treatment Upcoming Encounters Date Type Department Care Team (Late st Contact Info) Description 02/09/2025 1:40 PM CDT Office Visit [facility] Primary Care [address] [place] [address] Adithya Otero MD [address] [facility] [address] [place] [address] documented as of this encounter Visit Diagnoses Not on filedocumented in this encounter Additional Health Concerns Assessment Noted Time PHQ-9 Depression Total Score: 1 11/28/19 25 10:12 PM LIGHT RAIL VEHICLE OPERATOR documented as of this encounter Care Teams Cloth Shrinking Machine Operator Relationship Specialty Start Date End Date Adithya Otero MD PCP - General 04/28/08 documented as of this encounter
--- OUTSIDE RECORDS SUMMARY | 2024-12-29 13:34 | XMS_ITS | Encounter Summary ---
Author Organization [facility] Address [address] [place] [address] Care Team Providers Care Filling Separator Name Role Phone Adithya Otero MD Primary Care Provider [phone] Encounter Details Date Type Department Care Team (Late Contact Info) Description 12/24/2007 Outpatient Historical [facility] Internal Medicine [address] [address] Adithya Otero MD [address] [place] [address] [address] [place] [address] Social History Tobacco Use Types Packs/Day Years Used Date Smoking Tobacco: Never Assessed Sex and Gender Information Value Date Recorded Sex Assigned at Not on file Legal Sex Male 2:39 AM IRON MINER BLASTING Gender Identity Not on file Sexual Orientation Not on file documented as of this encounter Plan of Treatment Upcoming Encounters Date Type Department Care Team (Late st Contact Info) Description 02/09/2025 1:40 PM CDT Office Visit [facility] Primary Care [address] [place] [address] Adithya Otero MD [address] [place] [address] [address] [place] [address] documented as of this encounter Visit Diagnoses Not on filedocumented in this encounter Care Teams Filling Separator Relationship Specialty Start Date End Date Adithya Otero MD PCP - General 04/28/08 documented as of this encounter
--- OUTSIDE RECORDS SUMMARY | 2024-12-29 13:34 | XMS_ITS | Encounter Summary ---
Author Organization [facility] Address 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 MARKER MAKER Gender Identity Not on file Sexual Orientation Not on file documented as of this encounter Plan of Treatment Upcoming Encounters Date Type Department Care Team (Late st Contact Info) Description 02/09/2025 1:40 PM CDT Office Visit [facility] Primary Care [address] [place] [address] Adithya Otero MD [address] [place] [address] [address] [place] [address] documented as of this encounter Visit Diagnoses Not on filedocumented in this encounter Care Teams Plate Slitter And Inspector Relationship Specialty Start Date End Date Adithya Otero MD PCP - General 04/28/08 documented as of this encounter
--- OUTSIDE RECORDS SUMMARY | 2024-12-29 13:34 | XMS_ITS | Encounter Summary ---
Author Organization [facility] Address [address] [place] [address] Care Team Providers Care Academic Coordinator Name Role Phone Adithya Otero MD Primary Care Provider [phone] Encounter Details Date Type Department Care Team (Late st Contact Info) Description 11/26/2024 Results Follow-Up [facility] Emergency Clinical Decision Unit [address] [place] [address] Sophia Laboy, FOLLOW UP MANAGER [address] [place] [address] CTA CHEST + ABD/PEL W CONTRAST Social History Tobacco Use Types Packs/Day Years [...] declined 01/28/2019 How often do you attend catholic or alevism serv ices? Patient declined 01/28/2019 Do you belong to any clubs o r organizations such as catholic groups, unions, fraternal or athletic groups, [...] on file Legal Sex Male 2:39 AM PRINCIPAL JAVA DEVELOPER Gender Identity Not on file Sexual Orientation Not on file Occupation Industry Job Start Date Job End Date retired Not on file Not on file Not on file documented as of this encounter Plan of Treatment Upcoming Encounters Date Type Department Care Team (Late st Contact Info) Description 02/09/2025 1:40 PM CDT Office Visit [facility] Primary Care [place] [id number] [place] [address] [address] [place] [id number] Adithya Otero MD [address] [place] [address] [address] [place] [address] documented as of this encounter Visit Diagnoses Not on filedocumented in this encounter Additional Health Concerns Assessment Noted Time PHQ-9 Depression Total Score: 1 02/09/20 24 11:39 AM CDT documented as of this encounter Care Teams Academic Coordinator Relationship Specialty Start Date End Date Adithya Otero MD PCP - General 04/28/08 documented as of this encounter
--- OUTSIDE RECORDS SUMMARY | 2024-12-29 13:34 | XMS_ITS | Encounter Summary ---
Author Organization [facility] Address [address] [place] [address] Care Team Providers Care Route Salesman Name Role Phone Adithya Otero MD Primary Care Provider [phone] Encounter Details Date Type Department Care Team (Late Contact Info) Description 04/09/2007 Outpatient Historical [facility] Internal Medicine [address] [address] Adithya Otero MD [address] [place] [address] [address] [place] [address] Social History Tobacco Use Types Packs/Day Years Used Date Smoking Tobacco: Never Assessed Sex and Gender Information Value Date Recorded Sex Assigned at Not on file Legal Sex Male 2:39 AM QUARRYING SPECIALIST Gender Identity Not on file Sexual Orientation Not on file documented as of this encounter Plan of Treatment Upcoming Encounters Date Type Department Care Team (Late st Contact Info) Description 02/09/2025 1:40 PM CDT Office Visit [facility] Primary Care [address] [place] [address] Adithya Otero MD [address] [place] [address] [address] [place] [address] documented as of this encounter Visit Diagnoses Not on filedocumented in this encounter Care Teams Route Salesman Relationship Specialty Start Date End Date Adithya Otero MD PCP - General 04/28/08 documented as of this encounter
--- OUTSIDE RECORDS SUMMARY | 2024-12-29 13:34 | XMS_ITS | Encounter Summary ---
Author Organization [facility] Address [address] [place] [address] Care Team Providers Care Marketing Operations Assistant Name Role Phone Adithya Otero MD Primary Care Provider [phone] Encounter Details Date Type Department Care Team (Late st Contact Info) Description 11/10/2003 Outpatient Historical [facility] Internal Medicine [address] [address] Adithya Otero MD [address] [facility] [address] [place] [address] Social History Tobacco Use Types Packs/Day Years Used Date Smoking Tobacco: Never Assessed Sex and Gender Information Value Date Recorded Sex Assigned at Not on file Legal Sex Male 2:39 AM ESCORT BLIND Gender Identity Not on file Sexual Orientation Not on file documented as of this encounter Last Filed Vital Signs Vital Sign Reading Time Taken Comments Blood Pressure 130/88 11/10/2003 1:00 PM ESCORT BLIND Pulse - - Temperature - - Respiratory Rate - - Oxygen Saturation - - Inhaled Oxygen Concentration - - Weight 102.1 kg (225 lb) 11/10/2003 1:00 PM ESCORT BLIND Height 184.2 cm (6' 0.5 ) 11/10/2003 1:00 PM ESCORT BLIND Body Mass Index 30.1 11/10/2003 1:00 PM ESCORT BLIND documented in this encounter Plan of Treatment Upcoming Encounters Date Type Department Care Team (Late st Contact Info) Description 02/09/2025 1:40 PM CDT Office Visit [facility] Primary Care [address] [place] [address] Adithya Otero MD [address] [place] [address] [place] [address] documented as of this encounter Visit Diagnoses Not on filedocumented in this encounter Care Teams Marketing Operations Assistant Relationship Specialty Start Date End Date Adithya Otero MD PCP - General 04/28/08 documented as of this encounter
--- OUTSIDE RECORDS SUMMARY | 2024-12-29 13:34 | XMS_ITS | Encounter Summary ---
Author Organization [facility] Address [address] [place] [address] Care Team Providers Care Accounts Receivable Manager Name Role Phone Adithya Otero MD Primary Care Provider [phone] Encounter Details Date Type Department Care Team (Late Contact Info) Description 02/09/2004 Outpatient Historical [facility] Internal Medicine [address] [address] Adithya Otero MD [address] [place] [address] [address] [place] [address] Social History Tobacco Use Types Packs/Day Years Used Date Smoking Tobacco: Never Assessed Sex and Gender Information Value Date Recorded Sex Assigned at Not on file Legal Sex Male 2:39 AM DIRECTOR OF REHABILITATION AND WELLNESS Gender Identity Not on file Sexual Orientation Not on file documented as of this encounter Plan of Treatment Upcoming Encounters Date Type Department Care Team (Late st Contact Info) Description 02/09/2025 1:40 PM CDT Office Visit [facility] Primary Care [address] [place] [address] Adithya Otero MD [address] [place] [address] [address] [place] [address] documented as of this encounter Visit Diagnoses Not on filedocumented in this encounter Care Teams Accounts Receivable Manager Relationship Specialty Start Date End Date Adithya Otero MD PCP - General 04/28/08 documented as of this encounter
--- OUTSIDE RECORDS SUMMARY | 2024-12-29 13:34 | XMS_ITS | Encounter Summary ---
Author Organization [facility] Address [address] [place] [address] Care Team Providers Care Human Services Supervisor Name Role Phone Adithya Otero MD Primary Care Provider [phone] Encounter Details Date Type Department Care Team (Late st Contact Info) Description 12/05/2005 Outpatient Historical [facility] Internal Medicine [address] [address] Adithya Otero MD [address] [place] [address] [address] [place] [address] Social History Tobacco Use Types Packs/Day Years Used Date Smoking Tobacco: Never Assessed Sex and Gender Information Value Date Recorded Sex Assigned at Not on file Legal Sex Male 2:39 AM DIRECTOR OF SALES Gender Identity Not on file Sexual Orientation Not on file documented as of this encounter Last Filed Vital Signs Vital Sign Reading Time Taken Comments Blood Pressure 140/80 12/05/2005 2:30 PM DIRECTOR OF SALES Pulse - - Temperature - - Respiratory Rate - - Oxygen Saturation - - Inhaled Oxygen Concentration - - Weight 108.4 kg (239 lb) 12/05/2005 2:30 PM DIRECTOR OF SALES Height - - Body Mass Index 31.97 11/10/2003 1:00 PM DIRECTOR OF SALES documented in this encounter Plan of Treatment Upcoming Encounters Date Type Department Care Team (Late st Contact Info) Description 02/09/2025 1:40 PM CDT Office Visit [facility] Primary Care [address] [place] [address] Adithya Otero MD [address] [place] [address] documented as of this encounter Visit Diagnoses Not on filedocumented in this encounter Care Teams Human Services Supervisor Relationship Specialty Start Date End Date Adithya Otero MD PCP - General 04/28/08 documented as of this encounter
--- OUTSIDE RECORDS SUMMARY | 2024-12-29 13:34 | XMS_ITS | Encounter Summary ---
Author Organization [facility] Address [address] [place] [address] Care Team Providers Care Senior Maintenance Technician Name Role Phone Adithya Otero MD Primary Care Provider [phone] Encounter Details Date Type Department Care Team (Late st Contact Info) Description 04/09/2007 Orders Only [facility] Internal Medicine [address] [address] Adithya Otero MD [address] [place] [address] Social History Tobacco Use Types Packs/Day Years Used Date Smoking Tobacco: Never Assessed Sex and Gender Information Value Date Recorded Sex Assigned at Not on file Legal Sex Male 2:39 AM AUTO BODY DETAILER Gender Identity Not on file Sexual Orientation Not on file documented as of this encounter Progress Notes * Adithya Otero MD - 03/08/2008 5:29 PM CDT WEIGHT: 221lbs BLOOD PRESSURE: 138/88 Right Arm Sitting NURSE NAME: Isabell Perrin R CHIEF COMPLAINT Patient here for follow up hyperlipidemia, hypertension. HISTORY: HISTORY: 272.4-HYPERLIPIDEMIA The patient`s most recent labs reviewed. 401.9-HYPERTENSION, UNSPECIFIED The patient denies chest pain, shortness of breath, dyspnea on exertion, pedal edema, or headache. The patient is tolerating the medication. The blood pressure readings taken outside the office since the last visit have not been controlled in the target range. The blood pressure readings taken outside the office since the last visit are as follows: the systolic range has been 130's, 140's. 472.0-RHINITIS, CHRONIC stable 530.81-GASTROESOPHAGEAL REFLUX (GERD) The patient's dyspeptic symptoms remain stable. 600.00-BPH W/O OBSTRUCTION minimal sx 780.57-SLEEP APNEA not on rx 368.30-VISUAL DISTURBANCES just had surgery for retinal detachment ROS: ENDOCRINE: No heat or cold intolerance, [...] APPEARANCE: Healthy appearing patient in no distress. NECK/THYROID: Trachea midline. No thyroid enlargement, tenderness, or mass. No supraclavicular or cervical adenopathy. RESPIRATORY: Clear to auscultation and percussion. Normal respiratory effort. CARDIOVASCULAR: CARDIAC: Regular rhythm. No murmurs, rubs, or gallops. ARTERIAL: No aortic bruits. EDEMA/VARICOSITIES OF EXTREMITIES: No edema or varicosities. GASTROINTESTINAL: ABDOMEN: Soft, non-tender, without masses. Bowel sounds active. LIVER/SPLEEN/KIDNEY: No hepatosplenomegaly, tenderness or nodularity. Kidneys not palpable. RECTAL: Rectal exam reveals no masses or hemorrhoids, sphincter tone is normal. STOOL/HEMOCCULT: Stool is normal. Stool is hemoccult negative. GENITOURINARY: PROSTATE: 2+ ENLARGED, smooth. ASSESSMENT/PLAN: 272.4-HYPERLIPIDEMIA cont med, enc diet and ex 401.9-HYPERTENSION, UNSPECIFIED inc med, reassess, pt to bring readings in 1 mo MEDICATIONS: LISINOPRIL ORAL TABLET 40 MG, 1 Two Times A Day, 180 Dispensed, 1 Fills, 90 Duration/Days Supply, status: NEW PRESCRIPTION, 04/09/2007. LABETALOL HCL ORAL TABLET 200 MG, 1 Two Times A Day, 180 Dispensed, 3 Fills, 90 Duration/Days Supply, status: NEW PRESCRIPTION, 09/04/2006. LAB ORDERS: 4 mo Order number: [id number] Test Ordered: COMPREHENSIVE METABOLIC PANEL & GFR 1112 Order number: [id number] Test Ordered: LIPID PANEL 1078 472.0-RHINITIS, CHRONIC cont med 530.81-GASTROESOPHAGEAL REFLUX (GERD) cont med 600.00-BPH W/O OBSTRUCTION stable 715.90-OSTEOARTHROSIS UNSPECIFIED discussed, fu ortho 211.3-COLON POLYP(S) stable LAB ORDERS: Order number: [id number] Test Ordered: HEMOCCULT SINGLE 06302 RETURN VISIT : Patient instructed to return in 4 months. Electronically Signed by: Adithya Otero MD on Monday, April 09, 2007 documented in this encounter Plan of Treatment Upcoming Encounters Date Type Department Care Team (Late st Contact Info) Description 02/09/2025 1:40 PM CDT Office Visit [facility] [place] [address] Adithya Otero MD [address] [place] [address] documented as of this encounter Visit Diagnoses Not on filedocumented in this encounter Care Teams Senior Maintenance Technician Relationship Specialty Start Date End Date Adithya Otero MD PCP - General 04/28/08 documented as of this encounter
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
--- OUTSIDE RECORDS SUMMARY | 2024-12-29 13:34 | XMS_ITS | Encounter Summary ---
Author Organization [facility] Address [address] [place] [address] Care Team Providers Care Technical Assistance Consultant Name Role Phone Adithya Otero MD Primary Care Provider [phone] Encounter Details Date Type Department Care Team (Late Contact Info) Description 11/08/2004 Outpatient Historical [facility] Internal Medicine [address] [address] Adithya Otero MD [address] [place] [address] [address] [place] [address] Social History Tobacco Use Types Packs/Day Years Used Date Smoking Tobacco: Never Assessed Sex and Gender Information Value Date Recorded Sex Assigned at Not on file Legal Sex Male 2:39 AM YOGA COORDINATOR Gender Identity Not on file Sexual Orientation Not on file documented as of this encounter Plan of Treatment Upcoming Encounters Date Type Department Care Team (Late st Contact Info) Description 02/09/2025 1:40 PM CDT Office Visit [facility] Primary Care [address] [place] [address] Adithya Otero MD [address] [place] [address] [address] [place] [address] documented as of this encounter Visit Diagnoses Not on filedocumented in this encounter Care Teams Technical Assistance Consultant Relationship Specialty Start Date End Date Adithya Otero MD PCP - General 04/28/08 documented as of this encounter
--- OUTSIDE RECORDS SUMMARY | 2024-12-29 13:34 | XMS_ITS | Clinical Summary ---
Author Organization [facility] Address [address] [place] [address] Care Team Providers Care Department Clinician Name Role Phone Adithya Otero MD Primary Care Provider + Adithya Otero MD Unavailable [phone] Codie Bronson MD, Marquise Black Unavailable Allergies Active Allergy Reactions Criticality Noted Date Comments [place] Anaphylaxis High 12/08/2019 Lisinopril Anaphylaxis High Medications atorvastatin (LIPITOR) 40 mg tabletIndicatio ns:hyperlipidem ia Take 40 mg by mouth nightly Active amLODIPine (NORVASC) 2.5 mg tabletIndicatio ns:hypertension Take 5 mg by mouth every morning 7 Active labetalol (NORMODYNE,NAVARRO DATE) 300 mg tabletIndicatio ns:hypertension Take 300 mg by mouth 2 (two) times a day Active esomeprazole DR (NexIUM) 40 mg capsuleIndicati ons:Gerd Take 20 [...] (04/30/2021): Added automatically from request for surgery [id number] Screen for colon cancer 04/30/2021 Overview (04/30/2021): Added automatically from request for surgery [id number] Neurosensory deafness, 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 [...] carcinoma of skin of face 11/22/19 15 Encounters Date Type Department Care Team Description 12/20/2024 Community Orders [facility] EpicCare Link Belén Avila MD 11/26/2024 11:34 AM STOPPER SETTER - 11/26/2024 11:59 PM STOPPER SETTER Hospital Encounter [facility] - Imaging [address] [place] [address] Prostate cancer (HCC) Discharge Disposition: Discharge to home or self care from Last 3 Months Surgical History Surgery Date Site/Laterality Comments TYMPANOPLASTY 06/26/2017 Left MOHS SURGERY SCC- nose CATARACT EXTRACTION Left left eye COLONOSCOPY 11/06/2015 POLYPECTOMY Medical History Medical History Date Comments Ear problems ear infections Sleep apnea use a cpap Hypertension Irritable bowel syndrome Hyperlipidemia SCC (squamous cell carcinoma) no se Colon polyp Hiatal hernia Family History Medical History Relation Name Comments Arthritis Other Bleeding Disorder Other Cancer Other Gout Other Heart disease Other Hypertension Other Anesthesia problems Neg Hx Relation Name Status Comments Other Social History Tobacco Use Types Packs/Day Years Used Date Smoking Tobacco: Never Smokeless Tobacco: Never Alcohol Use Standard Drinks/Week Comments Not Currently 0 (1 standard drink = 0.6 oz pur e alcohol) Sex and Gender Information Value Date Recorded Sex Assigned at Not on file Legal Sex Male 1:07 AM STOPPER SETTER Gender Identity Not on file Sexual Orientation Not on file Obstetrics History Last Filed Vital Signs Vital Sign Reading Time Taken Comments Blood Pressure 127/80 09/26/2021 8:52 AM STOPPER SETTER Pulse 87 09/26/2021 8:52 AM STOPPER SETTER Temperature 36.7 C (98 F) 06/11/2021 12:13 PM CDT Respiratory Rate 20 06/11/2021 12:13 PM CDT Oxygen Saturation 98% 06/11/2021 12:13 PM CDT Inhaled Oxygen Concentration - - Weight 99.8 kg (220 lb) 09/26/2021 8:52 AM STOPPER SETTER Height 182.9 cm (6') 09/26/2021 8:52 AM STOPPER SETTER Body Mass Index 29.84 09/26/2021 8:52 AM STOPPER SETTER Plan of Treatment Health Maintenance Due Date Last Done Comments Depression Screening 1945 Hepatitis C Screening 1945 Hepatitis B Screening 1963 Well Visit 65+ 2010 Zoster Vaccine (2 of 3) 09/06/2015 07/12/2015 Fall Risk Assessment 06/11/2022 06/11/2021 DTaP/Tdap/Td Vaccine (2 - Td or Tdap) 06/16/2024 06/16/2014, 11/10/2000 Covid-19 Vaccine (5 2023-2 5 season) 2024 04/25/2022, 08/26/2021, 01/09/2021, Additional history exists Pneumococcal vaccine 65+ Completed 020, 06/29/2015, 11/22/2010 Colon Cancer Screening-CT Colonography Discontinued 06/11/2021, 11/06/2015, 11/06/2015, Additional history exists Colon Cancer Screening-Colonoscopy Discontinued 06/11/2021, 11/06/2015, 11/06/2015, Additional history exists Colon Cancer Screening-DNA Stool Discontinued 06/11/2021, 11/06/2015, 11/06/2015, Additional history exists Colon Cancer Screening-FIT Discontinued 06/11, 11/06/2015, 11/06/2015, Additional history exists Colon Cancer Screening-FOBT Discontinued 05/20, 11/06/2015, 11/06/2015, Additional history exists Colon Cancer Screening-Sigmoidoscopy Discontinued 06/11/2021, 11/06/2015, 11/06/2015, Additional history exists Colorectal Cancer Screening Discontinued Influenza Vaccine Completed 08/05/2024, , 07/04/2020, Additional history exists Procedures Procedure Name Priority Date/Time Associated Diagnosis Comments MRI PELVIS PROSTATE W WO CONTRAST Schedule Routine, Read Routine (OP Routine) 11/26/2024 1:41 PM STOPPER SETTER Prostate cancer (HCC) COLONOSCOPY 06/11/2021 9:48 AM CDT from Last 3 Months or Most Recently Relevant to Health Maintenance Results * MRI PELVIS PROSTATE W WO CONTRAST (11/26/2024 1:41 PM STOPPER SETTER) Anatomical Region Laterality Modality Body N/A Magnetic Resonan ce 11/28/2024 11:1 9 AM STOPPER SETTER Impressions 11/28/2024 11:21 AM STOPPER SETTER Benign prostatic hypertrophy. No evidence of PI RADS 3 or greater lesions. Dictated by: Sondra Kaur M.D. The radiology attending physician has personally reviewed this study, and had reviewed and/or edited this written report and agrees with it. Electronically signed by: Miriam Littlejohn M.D. 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 Electronically signed by: Miriam Littlejohn M.D. [facility] IMG MRI PROCEDURES Final Resul t * COLONOSCOPY (06/11/2021 9:48 AM CDT) Anatomical Region Laterality Modality Other Narrative Procedure Note Roxanna Conteh MD - 06/11/2021 9:48 AM CDT [facility] Patient Name: Roxanna Lomeli Procedure Date: 06/11/2021 9:48 AM Date of : 1945 Admit Type: Outpatient Age: 75 Gender: Male Attending MD: Roxanna Conteh M.D. Room: [facility] ENDOSCOPY ROOM 2 Note Status: Finalized [...] scope was passed under direct vision. TheColonoscope [id number] was introduced through the anus and advanced [...] history of colonic polyps CPT copyright 2019 [employer]. All rights reserved. The codes documented in this report are preliminary and upon rug designer reviewmay be revised to meet current compliance requirements. Recognized by the [employer] for promoting quality in endoscopy us Roxanna Conteh MD ENDOSCOPY PROCEDURES Final Re sult from Last 3 Months or Most Recently Relevant to Health Maintenance Insurance [facility] MEDICARE [facility] MEDICARE [facility] MEDICARE BLUE CROSS MEDICARE SUPPLEMENT Advance Directives For more information, please contact: [phone] * Full Code (Latest Code Status on File) Date Activated Date Inactivated Comments 06/11/2021 10:18 AM 06/11/2021 4:38 PM * Full Code Date Activated Date Inactivated Comments 06/11/2021 10:18 AM 06/11/2021 10:18 AM Care Teams Department Clinician Relationship Specialty Start Date End Date Adithya Otero MD PCP - General Internal Medicine 04/06/17 Adithya Otero MD Internal Medicine 04/06/17 Marquise Mackay Jr., MD Consulting Physician Urology 03/26/20
--- OUTSIDE RECORDS SUMMARY | 2024-12-29 13:34 | XMS_ITS | Encounter Summary ---
Author Organization [facility] Address [address] [place] [address] Care Team Providers Care Model Builder Display Name Role Phone Adithya Otero MD Primary Care Provider [phone] Encounter Details Date Type Department Care Team (Late Contact Info) Description 12/24/2007 Outpatient Historical [facility] Internal Medicine [address] [address] Adithya Otero MD [address] [place] [address] [address] [place] [address] Social History Tobacco Use Types Packs/Day Years Used Date Smoking Tobacco: Never Assessed Sex and Gender Information Value Date Recorded Sex Assigned at Not on file Legal Sex Male 2:39 AM [employer] Gender Identity Not on file Sexual Orientation Not on file documented as of this encounter Plan of Treatment Upcoming Encounters Date Type Department Care Team (Late st Contact Info) Description 02/09/2025 1:40 PM CDT Office Visit [facility] Primary Care [address] [place] [address] Adithya Otero MD [address] [place] [address] [address] [place] [address] documented as of this encounter Visit Diagnoses Not on filedocumented in this encounter Care Teams Model Builder Display Relationship Specialty Start Date End Date Adithya Otero MD PCP - General 04/28/08 documented as of this encounter
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
--- OUTSIDE RECORDS SUMMARY | 2024-12-29 13:34 | XMS_ITS | Encounter Summary ---
Author Organization [facility] Address 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 PCP: june. ALTERNATIVE PHONE NUMBER: - HOME WHO CALLED: SECTION 1: Wants new written Rx for Fexofenadine. Needs it for 90 days with 3 refills for mail order. Wants to wait for his so he mail it tonight. DOCTOR`S RESPONSE: serjio 07/19/07 at 04:27 pm MEDICATIONS: Call in to Pharmacy AFSHIN ORAL TABLET 180 MG, 1 Every Day, 90 Dispensed, 3 Fills, 90 Duration/Days Supply, status: CONTINUED, 07/19/2007. FINAL ACTION: elvi 07/19/07 at 04:47 pm Spoke with patient 07/19/07 at 04:48 pm. Paola got script & gave to pt. Electronically Signed by: Demi Leone on Thursday, July 19, 2007 documented in this encounter Plan of Treatment Upcoming Encounters Date Type Department Care Team (Late st Contact Info) Description 02/09/2025 1:40 PM CDT Office Visit [facility] [address] [phone] Adithya Otero MD [address] [place] [address] documented as of this encounter Visit Diagnoses Not on filedocumented in this encounter Care Teams Tassel Clipper Relationship Specialty Start Date End Date Adithya Otero MD PCP - General 04/28/08 documented as of this encounter
--- OUTSIDE RECORDS SUMMARY | 2024-12-29 13:34 | XMS_ITS ---
Author Organization 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 Past Treatment and Therapy Plans No past plan information found. Lifetime Dose Tracking * Chemical Lifetime Dose Automatic Entry Manual Entr y Fluoro Time 4 minutes 4 minutes 0 minutes Air kerma at the reference point (Ka,r) 378.5 mGy 3 78.5 mGy 0 mGy
--- OUTSIDE RECORDS SUMMARY | 2024-12-29 13:34 | XMS_ITS | Encounter Summary ---
Author Organization [facility] Address [address] [place] [address] Care Team Providers Care Furniture Reproducer Name Role Phone Adithya Otero MD Primary Care Provider [phone] Encounter Details Date Type Department Care Team (Late st Contact Info) Description 09/05/[address] 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 Gender Identity Not on file Sexual Orientation Not on file documented as of this encounter Last Filed Vital Signs Vital Sign Reading Time Taken Comments Blood Pressure 130/80 09/05/2005 2:15 PM SILK SCREEN CUTTER Pulse - - Temperature - - Respiratory Rate - - Oxygen Saturation - - Inhaled Oxygen Concentration - - Weight 105.2 kg (232 lb) 09/05/2005 2:15 PM SILK SCREEN CUTTER Height - - Body Mass Index 31.03 11/10/2003 1:00 PM SILK SCREEN CUTTER documented in this encounter Plan of Treatment Upcoming Encounters Date Type Department Care Team (Late st Contact Info) Description 02/09/2025 1:40 PM CDT Office Visit [facility] Primary Care [address] [place] [address] Adithya Otero MD [address] [place] [phone] documented as of this encounter Visit Diagnoses Not on filedocumented in this encounter Care Teams Furniture Reproducer Relationship Specialty Start Date End Date Adithya Otero MD PCP - General 04/28/08 documented as of this encounter
--- OUTSIDE RECORDS SUMMARY | 2024-12-29 13:34 | XMS_ITS | Encounter Summary ---
Author Organization [facility] Address [address] [place] [address] Care Team Providers Care Realty Loan Specialist Name Role Phone Adithya Otero MD Primary Care Provider [phone] Encounter Details Date Type Department Care Team (Late st Contact Info) Description 08/27/2007 Outpatient Historical [facility] Internal Medicine [address] [address] Adithya Otero MD [address] [place] [address] [address] [place] [address] Social History Tobacco Use Types Packs/Day Years Used Date Smoking Tobacco: Never Assessed Sex and Gender Information Value Date Recorded Sex Assigned at Not on file 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 Gender Identity Not on file Sexual Orientation Not on file documented as of this encounter Last Filed Vital Signs Vital Sign Reading Time Taken Comments Blood Pressure 138/90 08/27/2007 1:30 PM SUPERVISOR [employer] Pulse - - Temperature - - Respiratory Rate - - Oxygen Saturation - - Inhaled Oxygen Concentration - - Weight 103.4 kg (228 lb) 08/27/2007 1:30 PM SUPERVISOR [employer] Height - - Body Mass Index 30.5 11/10/2003 1:00 PM SUPERVISOR [employer] documented in this encounter Plan of Treatment Upcoming Encounters Date Type Department Care Team (Late st Contact Info) Description 02/09/2025 1:40 PM CDT Office Visit [facility] Primary Care [address] [place] [address] Adithya Otero MD [address] [place] [phone] documented as of this encounter Visit Diagnoses Not on filedocumented in this encounter Care Teams Realty Loan Specialist Relationship Specialty Start Date End Date Adithya Otero MD PCP - General 04/28/08 documented as of this encounter
--- OUTSIDE RECORDS SUMMARY | 2024-12-29 13:34 | XMS_ITS | Encounter Summary ---
Author Organization [facility] Address 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 HISTORY: HISTORY: 272.4-HYPERLIPIDEMIA The patient is tolerating the medications. 368.30-VISUAL DISTURBANCES unchanged 401.9-HYPERTENSION, UNSPECIFIED The patient denies chest pain, shortness of breath, dyspnea on exertion, pedal edema, or headache.running a little high 472.0-RHINITIS, CHRONIC stable on med PAST MEDICAL HISTORY: reviewed SOCIAL HISTORY: TOBACCO USE: Has no significant smoking history. DISCUSSED SMOKING: neg. ALCOHOL: Does not give any significant history of alcohol usage. EXERCISES: The patient exercises. PHYSICAL EXAMINATION: CONSTITUTIONAL: GENERAL APPEARANCE: Healthy appearing patient in no distress. EARS, NOSE, MOUTH AND THROAT: EARS: EFFUSION PRESENT BILATERALLY. ORAL: Normal oropharynx. NECK/THYROID: Trachea midline. No thyroid enlargement, tenderness, or mass. No supraclavicular or cervical adenopathy. RESPIRATORY: Clear to auscultation and percussion. Normal respiratory effort. CARDIOVASCULAR: CARDIAC: Regular rhythm. No murmurs, rubs, or gallops. ARTERIAL: No aortic bruits. EDEMA/VARICOSITIES OF EXTREMITIES: No edema or varicosities. GASTROINTESTINAL: ABDOMEN: Soft, non-tender, without masses. Bowel sounds active. LIVER/SPLEEN/KIDNEY: No hepatosplenomegaly, tenderness or nodularity. Kidneys not palpable. ASSESSMENT/PLAN: 272.4-HYPERLIPIDEMIA con tmed, enc diet and exercise 401.9-HYPERTENSION, UNSPECIFIED inc med like a little lower MEDICATIONS: LABETALOL HCL ORAL TABLET 300 MG, 1 Two Times A Day, 180 Dispensed, 3 Fills, 90 Duration/Days Supply, status: NEW PRESCRIPTION, 08/27/2007. LISINOPRIL ORAL TABLET 40 MG, 1 Two Times A Day, 180 Dispensed, 1 Fills, 90 Duration/Days Supply, status: CONTINUED, 08/27/2007. LAB ORDERS: 4 mo Order number: [id number] Test Ordered: COMPREHENSIVE METABOLIC PANEL & GFR 1112 Order number: [id number] Test Ordered: LIPID PANEL 1078 Order number: [id number] Test Ordered: PSA, TOTAL 1002 Order number: [id number] Test Ordered: TSH 1720 530.81-GASTROESOPHAGEAL REFLUX (GERD) cont med 600.00-BPH W/O OBSTRUCTION recheck psa, discussed 780.57-SLEEP APNEA occ headaches, cont cpap , discussed PREVENTIVE COUNSELING The patient was counseled regarding diet, regular sustained exercise for at least 30 minutes 3-4 times per week, prostate cancer screening. Patient Education: Risks, benefits, and possible side effects of medication(s) were reviewed with the patient. RETURN VISIT : Patient instructed to return in 4 months. Electronically Signed by: Adithya Otero MD on Monday, August 27, 2007 documented in this encounter Plan of Treatment Upcoming Encounters Date Type Department Care Team (Late st Contact Info) Description 02/09/2025 1:40 PM CDT Office Visit [facility] Primary Care [address] [place] [address] Adithya Otero MD [address] [place] [address] [address] [place] [address] documented as of this encounter Visit Diagnoses Not on filedocumented in this encounter Care Teams Fiberglass Boat Builder Relationship Specialty Start Date End Date Adithya Otero MD PCP - General 04/28/08 documented as of this encounter
--- OUTSIDE RECORDS SUMMARY | 2024-12-29 13:34 | XMS_ITS | Clinical Summary ---
Author Organization [facility] Address [address] [address] Phone Care Team Providers Care Tattoo And Body Artist Name Role Phone Adithya Otero MD Primary Care Provider [phone] Allergies No known active allergies Medications Aspirin 81 MG Tablet Active Multiple Vitamin (MULTIVITAMINS) Capsule Active Fiber Powder Active esomeprazole (NEXIUM) 40 MG CAPSULE DELAYED RELEASE Active atorvastatin (LIPITOR) 40 MG Tablet Active labetalol (NORMODYNE) 300 MG Tablet 150 mg 2 times daily. Active amLODIPine (NORVASC) 2.5 MG Tablet Active irbesartan (AVAPRO) 150 MG Tablet Take 150 mg by mouth nightly. Active Probiotic Product (PROBIOTIC & ACIDOPHILUS EX ST) Capsule Take 1 daily by mouth while on antibiotics and for at lesat 5 days after completing the antibiotic course. 7 Active linaclotide (LINZESS) 145 MCG Capsule Take by mouth. 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 01/16/20 16 ETD (eustachian tube dysfunction) 01/16/2016 Noise-induced hearing loss of both ears 01/16/20 16 Conductive hearing loss, tympanic membrane 01/15 Arthritis Esophageal reflux Hyperlipidemia Systemic hypertension Resolved Problems Problem Noted Date Diagnosed Date Resolved Date 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 10/24/2016 Perforated ear drum 01/16/2016 05/15/20 16 Chronic myringitis 01/16/2016 6 Dermatitis 01/16/2016 05/15/2016 Acute serous otitis media 11/29/2015 Conductive hearing loss, external ear 01/16/2016 Overview (07/12/2015): Improved with cleaning Impacted cerumen of both ears 01/16/2016 Immunizations Immunization Administration Dates Next Due Covid-19, Mrna, Lnp-s, PF, 1 00 mcg/0.5 mL Dose (Moderna) 01/09/2021,12/12/2020 Influenza Vaccine 06/21/2015 Family History Medical History Relation Name Comments No Known Problems Father No Known Problems Mother Relation Name Status Comments Father Mother Social History Tobacco Use Types Packs/Day Years Used Date Smoking Tobacco: Never Tobacco Cessation:Counseling Given: Yes Alcohol Use Standard Drinks/Week Comments No 0 (1 standard drink = 0.6 oz pur e alcohol) Sexually Active Control Partners Comments Yes Male Sex and Gender Information Value Date Recorded Sex Assigned at Not on file Legal Sex Male 7:20 PM CDT Gender Identity Not on file Sexual Orientation Not on file 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 Not on file Not on file Not on file Last Filed Vital Signs Vital Sign Reading Time Taken Comments Blood Pressure 138/90 04/03/2017 11:16 AM CDT Pulse 75 04/03/2017 11:16 AM CDT Temperature 35.8 C (96.4 F) 02/11/2016 3:40 PM CDT Respiratory Rate 18 04/03/2017 11:16 AM CDT Oxygen Saturation 97% 04/03/2017 11:16 AM CDT Inhaled Oxygen Concentration - - Weight 104.8 kg (231 lb) 04/03/2017 11:16 AM CDT Height 182.9 cm (6') 04/03/2017 11:16 AM CDT Body Mass Index 31.33 04/03/2017 11:16 AM CDT Plan of Treatment Health Maintenance Due Date Last Done Comments Hepatitis C Virus (HCV) Screening 1945 TdaP Immunization 1945 Pneumococcal Immunization (5 0+ years) (1 of 1 - PCV) 1995 Zoster Immunization (1 of 2) 1995 Hepatitis B Immunization (1 of 3 - Risk 3-dose series) 2005 Respiratory Syncytial Virus (RSV) Immunization (Adult) (1 - 1-dose 75+ series) 2020 Influenza Immunization (#1) 2024 06/21/2015 SARS-COV-2 Immunization (3 - season) 2024 01/09/2021, 12/12/2020 Meningococcal Immunization (ACWY) Aged Out No longer eligible b ased on patient's age to complete this topic Rotavirus Immunization Aged Out No lo nger eligible based on patient's age to complete this topic Medical Devices Implanted Type Area Fruit Trimmer Device Identifier Shelf Expiration Date Model / Serial / Lot Collar Button Vent Tube Implanted:Qty: 1 on 02/11/2016 by Bala Chambers MD at [facility] Left: Ear [id number] / / [id number] Insurance MEDICARE Care Teams Tattoo And Body Artist Relationship Specialty Start Date End Date Adithya Otero MD [address] [place] [address] [facility] - General 11/29/15
--- OUTSIDE RECORDS SUMMARY | 2024-12-29 13:35 | XMS_ITS | Encounter Summary ---
Author Organization [facility] Address [address] [place] [address] Care Team Providers Care Basket Hand Braider Name Role Phone Adithya Otero MD Primary Care Provider + Adithya Otero MD Unavailable [phone] Andlydia Bronson MD, Marquise L. Unavailable Reason for Referral * MRI/CAT/PET Scan (Routine) - Closed Specialty Diagnoses / Procedures Referred By Contedmundo t Referred To Contact Radiology Diagnoses Prostate cancer (HCC) Procedures MRI PELVIS PROSTATE W [place] CONTR[place] Belén [place] [address] [place] [address] Phone: tel: fax: [address] [address] Referral ID Status Reason Start Date Expiration Date Visits Re quested Visits Authorized [id number] Closed 09/22/2024 10/22/2025 1 1 GATE KEEPER Encounter Details Date Type Department Care Team (Late st Contact Info) Description 09/22/2024 Community Orders [facility] [place]én [place] [address] [place] [address] Prostate cancer (HCC) (Primary Dx) Social History Tobacco Use Types Packs/Day Years Used Date Smoking Tobacco: Never Smokeless Tobacco: Never Alcohol Use Standard Drinks/Week Comments Not Currently 0 (1 standard drink = 0.6 oz pur e alcohol) Sex and Gender Information Value Date Recorded Sex Assigned at Not on file Legal Sex Male 1:07 AM TOLL GATE KEEPER Gender Identity Not on file Sexual Orientation Not on file documented as of this encounter Plan of Treatment Not on file documented as of this encounter Results * MRI PELVIS PROSTATE W WO CONTRAST (11/26/2024 1:41 PM TOLL GATE KEEPER) Anatomical Region Laterality Modality Body N/A Magnetic Resonan ce 11/28/2024 11:1 9 AM TOLL GATE KEEPER Impressions 11/28/2024 11:21 AM TOLL GATE KEEPER Benign prostatic hypertrophy. No evidence of PI RADS 3 or greater lesions. Dictated by: Sondra Kaur M.D. The radiology attending physician has personally reviewed this study, and had reviewed and/or edited this written report and agrees with it. Electronically signed by: Miriam Littlejohn M.D. 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 Electronically signed by: Miriam Littlejohn M.D. [facility] Cuong Avila MD [facility] MRI PROCEDURES Final Resul t documented in this encounter Visit Diagnoses Diagnosis Prostate cancer (HCC)- Primary Malignant neoplasm of prostate Prostate cancer (HCC) Malignant neoplasm of prostate documented in this encounter Care Teams Basket Hand Braider Relationship Specialty Start Date End Date Adithya Otero MD PCP - General Internal Medicine 04/06/17 Adithya Otero MD Internal Medicine 04/06/17 Marquise Mackay Jr., MD Consulting Physician Urology 03/26/20 documented as of this encounter
--- OUTSIDE RECORDS SUMMARY | 2024-12-29 13:35 | XMS_ITS | Encounter Summary ---
Author Organization [facility] Address [address] [place] [address] Care Team Providers Care Net Washer Name Role Phone Adithya Otero MD Primary Care Provider + Adithya Otero MD Unavailable Andlydia Bronson MD, Marquise Black Unavailable Encounter Details Date Type Department Care Team (Late st Contact Info) Description 12/20/2024 Community Orders [facility] Link Belén [place] [address] [place] [id number] Social History Tobacco Use Types Packs/Day Years Used Date Smoking Tobacco: Never Smokeless Tobacco: Never Alcohol Use Standard Drinks/Week Comments Not Currently 0 (1 standard drink = 0.6 oz pur e alcohol) Sex and Gender Information Value Date Recorded Sex Assigned at Not on file Legal Sex Male 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
--- OUTSIDE RECORDS SUMMARY | 2024-12-29 13:35 | XMS_ITS | Encounter Summary ---
Author Organization [facility] Address [address] [place] [address] Care Team Providers Care Carver And Checkerer Specials Name Role Phone Adithya Otero MD Primary Care Provider [phone] Encounter Details Date Type Department Care Team (Late st Contact Info) Description 09/04/2006 Outpatient Historical [facility] Internal Medicine [address] [address] Adithya Otero MD [address] [place] [address] [address] [place] [address] Social History Tobacco Use Types Packs/Day Years Used Date Smoking Tobacco: Never Assessed Sex and Gender Information Value Date Recorded Sex Assigned at Not on file Legal Sex Male 2:39 AM DRAUGHTSMAN Gender Identity Not on file Sexual Orientation Not on file documented as of this encounter Last Filed Vital Signs Vital Sign Reading Time Taken Comments Blood Pressure 130/90 09/04/2006 1:00 PM DRAUGHTSMAN Pulse - - Temperature - - Respiratory Rate - - Oxygen Saturation - - Inhaled Oxygen Concentration - - Weight 103.4 kg (228 lb) 09/04/2006 1:00 PM DRAUGHTSMAN Height - - Body Mass Index 30.5 11/10/2003 1:00 PM DRAUGHTSMAN documented in this encounter Plan of Treatment Upcoming Encounters Date Type Department Care Team (Late st Contact Info) Description 02/09/2025 1:40 PM CDT Office Visit [facility] Primary Care [address] [place] [address] Adithya Otero MD [address] [place] [phone] documented as of this encounter Visit Diagnoses Not on filedocumented in this encounter Care Teams Carver And Checkerer Specials Relationship Specialty Start Date End Date Adithya Otero MD PCP - General 04/28/08 documented as of this encounter
== END 2024-12-29 11:41 | disposition home or self-care (01) ==
PROVIDERS: PCP Internal Medicine; Visit Provider Urology
DX: R93.5 Abnormal findings on diagnostic imaging of other abdominal regions, including retroperitoneum (principal); N28.89 Other specified disorders of kidney and ureter; J90 Pleural effusion, not elsewhere classified
CPT/HCPCS: 78815; A9552